=== PATIENT | male | born 1980 | race Caucasian/White ===

== ENCOUNTER 2017-10-20 11:04 | Emergency (ER) | payer SELFPAY ==
[~2017-10-20] VITALS: Ht 188 cm; Wt 103.4 kg
[~2017-10-20 11:04] MED LIST: ACYC400 PO; AMOX500 PO; AZIT250 PO; CYCL10 PO; ERYT.5TO OD; FLUT.05NI; HYDACE5 PO; IBUP600 PO; IBUP800 PO; LOVA40; META800 PO; METPRE4DP PO; NAPR500 PO; Norco 5-325 Ta1 EACH PO; OFLO.3OPSO OP; OPTLUBOPO OP; PRED20 PO; PROCODE120 PO; Pepcid20 MG PO; Percocet 5-3251 EACH PO; Prednisone20 MG PO; RXTRAM50 PO; SULTRIDS PO; TRAM50 PO; VENL150ER PO
[2017-10-20] MEDS ORDERED: Polytrim Eye Dr10 ML LEFTEYE (12:59)
== END 2017-10-20 13:05 | disposition home or self-care (01) ==
LOC: ER 11:04
DX: H10.12 Acute atopic conjunctivitis, left eye (principal); H10.022 Other mucopurulent conjunctivitis, left eye
CPT/HCPCS: 99283

== ENCOUNTER 2017-12-03 14:07 | Emergency (ER) | payer SELFPAY ==
[~2017-12-03] VITALS: Ht 188 cm; Wt 103.4 kg
[~2017-12-03 14:07] MED LIST changes: +Polytrim Eye Dr10 ML LEFTEYE
== END 2017-12-03 16:15 | disposition home or self-care (01) ==
LOC: ER 14:07
DX: M79.644 Pain in right finger(s) (principal); F41.9 Anxiety disorder, unspecified; F32.9 Major depressive disorder, single episode, unspecified
CPT/HCPCS: 73130; 99283

== ENCOUNTER 2018-07-11 15:15 | Emergency (ER) | payer SELFPAY ==
[~2018-07-11] VITALS: Ht 188 cm; Wt 102.1 kg
[2018-07-11] MEDS ORDERED: GABA300 PO (15:41)
[2018-07-11] MEDS ORDERED: Naprosyn500 MG PO (16:22)
== END 2018-07-11 16:32 | disposition home or self-care (01) ==
LOC: ER 15:15
DX: M25.521 Pain in right elbow (principal); F41.9 Anxiety disorder, unspecified; F32.9 Major depressive disorder, single episode, unspecified; Z79.899 Other long term (current) drug therapy
CPT/HCPCS: 73080; 99283-25

== ENCOUNTER 2019-02-02 16:50 | Emergency (ER) | payer OTHER ==
[~2019-02-02] VITALS: Ht 188 cm; Wt 103.4 kg
[~2019-02-02 16:50] MED LIST changes: +GABA300 PO; +Naprosyn500 MG PO
[2019-02-02] MEDS ORDERED: Cheratussin AC118 ML PO (17:41)
[2019-02-02] MEDS ORDERED: Prednisone20 MG PO (17:41)
== END 2019-02-02 17:47 | disposition home or self-care (01) ==
LOC: ER 16:50
DX: J20.9 Acute bronchitis, unspecified (principal); Z79.899 Other long term (current) drug therapy; F32.9 Major depressive disorder, single episode, unspecified; F41.9 Anxiety disorder, unspecified
CPT/HCPCS: 71046; 99283-25; J1100

== ENCOUNTER 2019-10-29 07:17 | Day surgery (SDC) | payer OTHER ==
[~2019-10-29] VITALS: Ht 188 cm; Wt 106.6 kg
[~2019-10-29 07:17] MED LIST changes: +Cheratussin AC118 ML PO
--- NOTE | 2019-10-29 10:38 | NUR ---
10/29/19 1038 Sofiya Gutierrez 1028:RECEIVED REPORT FROM [facility].DM. 1030: PT COMPLAINS OF NAUSEA. MEDICATED PER ORDERS.
== END 2019-10-29 11:25 | disposition home or self-care (01) ==
LOC: ORSCSDS 07:17
PROVIDERS: Orthopaedic Surgery
PROC: 0LM30ZZ Reattachment of Right Upper Arm Tendon, Open Approach (ICD-10-PCS; principal; 2019-10-29 09:00)
DX: S46.201A Unspecified injury of muscle, fascia and tendon of other parts of biceps, right arm, initial encounter (principal); E78.5 Hyperlipidemia, unspecified; Z79.899 Other long term (current) drug therapy
CPT/HCPCS: C1713; J0690; J1100; J2250; J2405; J2704; J2795; J3010; J7120

== ENCOUNTER → 2021-09-27 | Outpatient (CLI) | payer OTHER ==
[2021-09-27 19:40] LABS: BASOPHILS ABSOLUTE AUTO 0.05 K/mm3 (0.00-0.23); BASOPHILS PERCENT AUTO 1 % (0-2); EOSINOPHILS ABSOLUTE AUTO 0.09 K/mm3 (0.00-0.68); EOSINOPHILS PERCENT AUTO 1 % (0-6); Hematocrit 40.1 % (37.0-53.0); Hemoglobin 14.2 g/dL (13.5-17.5); IMMATURE GRAN ABSOLUTE AUTO 0.03 K/mm3 (0.00-0.10); IMMATURE GRAN PERCENT AUTO 0 % (0-1); LYMPHOCYTES ABSOLUTE AUTO 3.47 K/mm3 (0.84-5.20); LYMPHOCYTES PERCENT AUTO 39 % (21-46); MONOCYTES ABSOLUTE AUTO 0.79 K/mm3 (0.16-1.47); MONOCYTES PERCENT AUTO 9 % (4-13); Mean Corpuscular HGB 31.5 pg (26.0-34.0); Mean Corpuscular HGB Conc 35.4 g/dL (31.5-36.5); Mean Corpuscular Volume 89 fL (80-100); Mean Platelet Volume 10.5 fL (9.1-12.4); NEUTROPHILS ABSOLUTE AUTO 4.48 K/mm3 (1.96-9.15); NEUTROPHILS PERCENT AUTO 50 % (41-73); Platelet Count 274 K/mm3 (150-400); RDW Standard Deviation 38.5 fL (35.1-46.3); Red Blood Cell Count 4.51 M/mm3 (4.30-5.90); White Blood Cell Count 8.91 K/mm3 (4.00-11.30)
[2021-09-27 19:56] LABS: Alanine Aminotransfer (ALT/SGP 38 U/L (12-78); Albumin, Blood 3.8 g/dL (3.4-5.0); Albumin/Globulin Ratio 1.2 (0.8-1.8); Alk Phos 85 U/L (50-136); Anion Gap 8 mmol/L (6-16); Aspartate Aminotrans (AST/SGOT 21 U/L (12-37); Bilirubin, Total 0.4 mg/dL (0.1-1.0); Blood Urea Nitrogen 16 mg/dL (8-24); Bun/Creatinine Ratio 17.1 (12.0-20.0); CO2, Blood 27 mmol/L (21-32); Calcium, Blood 9.6 mg/dL (8.5-10.1); Chloride, Blood 105 mmol/L (98-108); Creatinine, Blood 0.94 mg/dL (0.60-1.20); Globulin, Blood 3.3 g/dL (2.2-4.0); Glomerular Filtration Rate >60 (60-); Glucose, Blood 103 mg/dL (70-99); Potassium, Blood 3.8 mmol/L (3.5-5.5); Sodium, Blood 140 mmol/L (136-145); Total Protein, Blood 7.1 g/dL (6.4-8.2)
== END | disposition home or self-care (01) ==
LOC: LAB 19:06 → LAB SHORT 19:06
PROVIDERS: Physician Assistant
DX: R53.83 Other fatigue (principal); Z79.899 Other long term (current) drug therapy
CPT/HCPCS: 80053; 84443; 85025